=== PATIENT | male | born 1960 | race Caucasian/White ===

== ENCOUNTER → 2019-12-02 | Day surgery (SDC) | payer OTHER ==
[~2019-12-02] MED LIST: ALEVE220 MG PO; ASA81BEC PO; CARVEDILOL3.125 MG PO; METFORMIN HCL500 M3 PO; NORCO 5-325 TA1 EAC1 PO; OZEMPIC0.25 MG/0. SUBQ; PLAVIX 75 MG TA75 MG PO; PRINIVIL20 MG PO
--- NOTE | ~2019-12-02 | OP ---
[address] [address] OPERATIVE REPORT Name: OPAL BENITEZ Room: [facility]#: [id number] Admission: 12/02/19 Attend Phys: Lester Carlin II Discharge: Date of : 64 Report #: [id number] THIS REPORT FOR: //name// cc: Olga Flowers MD, Veronica A. MD ~ THIS REPORT FOR: //name// CC: Lester Flowers DATE OF SERVICE: 12/02/2019 PREOPERATIVE DIAGNOSIS: Left knee medial meniscus tear. POSTOPERATIVE DIAGNOSES: 1. Left knee medial meniscus tear. 2. Grade 3 chondromalacia, patellofemoral groove. PROCEDURES PERFORMED: 1. Left knee arthroscopic surgery with partial medial meniscectomy. 2. Abrasion chondroplasty, patellofemoral groove down to bleeding bone. SURGEON: Lester Carlin II, DO. SALES AND SERVICE CONSULTANT: [employer] [place]. ANESTHESIA: Per operative record. ESTIMATED BLOOD LOSS: Minimal. ANTIBIOTICS: Per operative record. DRAINS: None. COMPLICATIONS: None. CONDITION OF THE PATIENT: Stable to recovery room. DESCRIPTION OF PROCEDURE: The patient was taken to the operative suite and placed supine on the operating table, given appropriate anesthesia. The patient's affected lower extremity sterilely prepped and draped with well-padded knee arthroscopic caceres. Surgery began by medial and lateral portal incision. The arthroscope was advanced in the joint. There was shown to be grade 3 chondromalacia to the patellofemoral groove with loose fibrillated cartilage. Utilizing a shaver, an abrasion chondroplasty was performed down to bleeding bone and then smoothed utilizing Coblation wand of loose fibrillated cartilage. [address] [address] OPERATIVE REPORT Name: OPAL BENITEZ Room: [facility]#: [id number] Admission: 12/02/19 Attend Phys: Lester Carlin II Discharge: Date of : 64 Report #: [id number] The medial meniscus was shown to have a tear of the medial margin and extended around to the medial aspect of the joint. A partial meniscectomy was performed utilizing basket and shaver to resect the torn flap along the medial meniscus and then smoothed utilizing Coblation wand in appropriate fashion. The lateral meniscus was probed and shown to be intact. ACL and PCL were intact. Final irrigation was performed. The knee was then drained of arthroscopic fluid, closed with 4-0 nylon in simple fashion. Dermabond and sterile dressing applied. The patient transported to recovery room in stable condition. Counts were correct throughout the procedure. By: [id number] Carlin, II, DO /nt
[2019-12-02 08:59] LABS: HEMATOCRIT 46.2 % (42.0-52.0); HEMOGLOBIN 15.6 gm/dL (14.0-18.0); MCHC 33.8 g/dL (28.0-37.0); MCV 85.9 fL (80.0-100.0); MPV 7.3 fl. (7.2-11.1); RBC 5.38 mil/uL (4.50-6.00); RDW-CV 15.1 % (10.5-14.5); WBC 5.9 thou/uL (4.0-11.0)
[2019-12-02 09:01] LABS: CALCIUM 9.3 mg/dL (8.5-10.1); CREATININE 0.9 mg/dL (0.6-1.3); POTASSIUM 4.6 mmol/L (3.5-5.1)
--- NOTE | 2019-12-02 10:36 | EKG ---
[place] [address] ELECTROCARDIOGRAM REPORT Name: OPAL BENITEZ Room: [facility]#: [id number] Admission: 12/02/19 Attend Phys: Lester Carlin, Discharge: Date of : 64 Date of Service: 12/02/19922 Report #: [id number] THIS REPORT FOR: //name// [facility] Test Date: 2019-12-02 Test Time: 09:23:23 Pat Name: OPAL BENITEZ Department: Room: Gender: Head Of Quality: : 1960 Requested By: Lester Carlin Order Number: [id number] Reading MD: Toan Anderson Measurements Intervals [place] Rate: 67 P: 28 TN: 191 QRS: -60 QRSD: 124 T: 7 QT: 416 QTc: 439 Interpretive Statements Sinus rhythm left axis Left bundle branch block Artifact in lead(s) V1 and baseline wander in lead(s) V1,V4 No previous ECG available for comparison Electronically Signed On 12-02-2019 10:34:38 CDT by Toan Anderson [email or web address] <ELECTRONICALLY SIGNED> By: Toan Anderson MD, [facility] 12/02/19 1034 0923 0923 Toan Anderson MD, [facility] /EPI
== END | disposition home or self-care (01) ==
LOC: M.SUR 06:59 → M.LAB 16:36
PROVIDERS: Orthopaedic Surgery
DX: S83.242A Other tear of medial meniscus, current injury, left knee, initial encounter (principal); M22.42 Chondromalacia patellae, left knee; Z98.890 Other specified postprocedural states; Z79.899 Other long term (current) drug therapy; Z79.82 Long term (current) use of aspirin; Z88.0 Allergy status to penicillin; X58.XXXA Exposure to other specified factors, initial encounter; Y93.89 Activity, other specified; Y92.89 Other specified places as the place of occurrence of the external cause; Y99.8 Other external cause status